=== PATIENT | female | born 1950 | race Caucasian/White ===

== ENCOUNTER 2018-01-17 11:23 | Emergency (ER) | payer OTHER ==
[~2018-01-17] VITALS: Ht 152.4 cm; Wt 63.5 kg
[2018-01-17] MEDS ORDERED: MEDROLPACK PO (15:00)
[2018-01-17] MEDS ORDERED: ZITHROMAX200 MG PO (15:00)
[2018-01-17] MEDS ORDERED: TUSSI PRES-B L120 M1 PO (15:00)
== END 2018-01-17 15:12 | disposition home or self-care (01) ==
LOC: ER 11:23
DX: B34.9 Viral infection, unspecified (principal)

== ENCOUNTER 2019-05-15 14:01 | Emergency (ER) | payer OTHER ==
[~2019-05-15] VITALS: Ht 152.4 cm; Wt 68.0 kg
[~2019-05-15 14:01] MED LIST: MEDROLPACK PO; TUSSI PRES-B L120 M1 PO; ZITHROMAX200 MG PO
== END 2019-05-15 18:46 | disposition home or self-care (01) ==
LOC: ER 14:01
DX: R42 Dizziness and giddiness (principal)

== ENCOUNTER 2020-02-28 13:09 | Emergency (ER) | payer OTHER ==
[~2020-02-28] VITALS: Ht 152.4 cm; Wt 76.7 kg
== END 2020-02-28 17:33 | disposition designated cancer center or children's hospital (05) ==
LOC: ER 13:09 → CPU-OBS 13:10 → ER 17:33
DX: I21.4 Non-ST elevation (NSTEMI) myocardial infarction (principal); R07.89 Other chest pain
CPT/HCPCS: G0378; G0379; 93005